=== PATIENT | male | born 1960 | race Caucasian/White ===

== ENCOUNTER 2017-01-04 04:26 | Emergency (ER) | payer OTHER ==
[~2017-01-04] VITALS: Ht 167.6 cm; Wt 80.0 kg
[~2017-01-04 04:26] MED LIST: AZIT250T94 PO; FLUT9.9S NASAL; LORA1TAB PO
[2017-01-04 04:33] VITALS: Ht 167.6 cm; Wt 80.0 kg
--- NOTE | 2017-01-04 05:40 | RADRPT ---
PROCEDURE: CT Brain without contrast. CLINICAL INDICATION: Left arm numbness for weeks TECHNIQUE: Axial images from the skull base through the vertex without IV contrast. Multiplanar r eformatted images were made. Images were reviewed on a PACS workstation. The CTDIvol is 45.01 mGy and the DLP is 720.23 mGycm. One or more of the following dose reduction techniques were used: auto mated exposure control, adjustment of the mA and/or kV according to patient size, or use of iterativ e reconstruction technique. COMPARISON: None. FINDINGS: The ventricles and cisterns are normal for age. There is no evidence for territorial infarction or intracranial hemorrhage. No mass or midline shift is seen. No extra-axial fluid collection is seen . The visualized paranasal sinuses and mastoids are clear. IMPRESSION: No definite acute intracranial abnormality. RPTAT: [facility] Physician Scout Date Time Electronically viewed and signed by Physician Scout on 01/04/2017 05:40 MAIA/
[2017-01-04] MEDS ORDERED: METH-70 PO (07:22)
[2017-01-04] MEDS ORDERED: IBUP800T25 PO (07:22)
--- NOTE | 2017-01-04 07:27 | ERD ---
ER Documentation Chief Complaint Date/Time DATE: 01/04/17 TIME: 07:23 Chief Complaint Numbness of the left shoulder and the arm. denies CP HPI This is a 56-year-old male here for left arm numbness. The patient says he has had daily left arm numbness for 3 weeks. He says the numbness is always there never goes away. He says he does not notice it as much when he is busy but that he is always there. The patient states that every morning he goes to the park and uses a weightlifting machine and does 200-300 machine rows. He has been seen here before and had a workup for cardiac which is negative. Is having no chest pain. He does say he has some pain begins at the left posterior neck and left trapezius, but there is no pain in the arm. He just feels tingling in the entire arm sometimes a tingling is only in the hand. No speech changes no visual change no symptoms in the leg ROS All systems reviewed and are negative except as per history of present illness. Medications Home Meds Active Scripts Methocarbamol* (Robaxin*) 750 Mg Tablet, 750 MG PO TID, #30 TAB Prov:MEÑO LADD DO 01/04/17 Ibuprofen* (Motrin*) 800 Mg Tab, 800 MG PO Q6H Y for PAIN AND OR ELEVATED TEMP, #30 TAB Prov:MEÑO LADD. DO 01/04/17 Fluticasone Propionate (Flonase Allergy Relief) 9.9 Ml [place].susp, 1 SPRAY NASAL DAILY, #1 BOTTLE TO EACH NOSTRIL Prov:RD ZAMBRANO DO 11/01/15 Lorazepam* (Lorazepam*) 1 Mg Tablet, 1 MG PO Q8H Y for ANXIETY, #10 TAB Prov:RD ZAMBRANO DO 11/01/15 Azithromycin* (Zithromax*) 250 Mg Tablet, 250 MG PO .ZPACK DIRECTED, #6 TAB TAKE 500 MG (2 TABS) THE FIRST DAY THEN 250 MG (1 TAB) DAYS 2-5 Prov:RAMOS VYAS 10/13/15 Allergies Allergies: Coded Allergies: No Known Allergy (Verified , 03/29/13) PMhx/Soc History of Surgery: No Anesthesia Reaction: No Hx Neurological Disorder: No Hx Respiratory Disorders: No Hx Cardiac Disorders: No Hx Psychiatric Problems: No Hx Miscellaneous Medical Probl: No Hx Alcohol Use: No Hx Substance Use: No Hx Tobacco Use: Yes Smoking Status: Current some day smoker FmHx Family History: No coronary disease Physical Exam Vitals Vital Signs Date Time Temp Pulse Resp B/P Pulse Ox O2 Delivery O2 Flow Rate FiO2 01/04/17 05:10 55 10 117/75 99 Room Air 01/04/17 04:33 97.2 58 20 110/69 97 Physical Exam Const: Well-developed, well-nourished Head: Atraumatic, normocephalic Eyes: Normal Conjunctiva, PERRLA, EOMI, normal sclera, no nystagmus ENT: Normal External Ears, Nose and Mouth, moist mucus membranes. Neck: Full range of motion. No meningismus, no lymphadenopathy. Resp: Clear to auscultation bilaterally, no wheezing, rhonchi, rales Cardio: Regular rate and rhythm, no murmurs, S1 S2 present Abd: Soft, non tender x 4, non distended. Normal bowel sounds, no guarding or rebound, no pulsitile abdominal masses or bruits Skin: No petechiae or rashes, no ecchymosis , no maculopapular rash Back: No midline or flank tenderness Ext: No cyanosis, or edema, FROM x 4, normal inspection, neurovascularly intact x 4, subjective tingling in the left upper extremity Neur: Awake and alert, STR 5/5 x 4, sensation intact x 4, no focal findings, cerebellum intact Psych: Normal Mood and Affect Results 24 hrs Laboratory Tests Test 01/04/17 04:58 01/04/17 05:15 Bedside Glucose 98mg/dL Troponin I < 0.012ng/ml Procedures/MDM EKG: Rate/Rhythm: Sinus bradycardia, incomplete right bundle branch block QRS, ST, QT: NORMAL LA, QRS, QT] Impression: NORMAL EKG PROCEDURE: CT Brain without contrast. CLINICAL INDICATION: Left arm numbness for weeks TECHNIQUE: Axial images from the skull base through the vertex without IV contrast. Multiplanar reformatted images were made. Images were reviewed on a PACS workstation. The CTDIvol is 45.01 mGy and the DLP is 720.23 mGycm. One or more of the following dose reduction techniques were used: automated exposure control, adjustment of the mA and/or kV according to patient size, or use of iterative reconstruction technique. COMPARISON: None. FINDINGS: The ventricles and cisterns are normal for age. There is no evidence for territorial infarction or intracranial hemorrhage. No mass or midline shift is seen. No extra-axial fluid collection is seen. The visualized paranasal sinuses and mastoids are clear. IMPRESSION: No definite acute intracranial abnormality. RPTAT: [facility] Joan Harrison Physician Date Time Electronically viewed and signed by Joan Harrison Physician on 01/04/2017 05 :40 LE/ CC: ARMANDO PATEL DO Patient likely has a cervical radiculopathy from an impingement of nerve in the neck or spine. Patient CT head is negative troponin is negative EKG is unremarkable. Told the patient to stop doing these machine activities in the morning at the park slightly making it worse. I told him to see his doctor and to order an MRI of his cervical spine to rule out any pathology Departure Diagnosis: Primary Impression: Cervical radiculopathy Condition: Stable Patient Instructions: Radiculopathy, Cervical Referrals: HUGO AYALA MD, APOSTOLOS A. DO January 04, 2017 07:27
[2017-01-04 07:38] VITALS: BP 122/65; PULSE 60; RESP 18
== END 2017-01-04 07:39 | disposition home or self-care (01) ==
LOC: E/R 04:26
DX: M54.12 Radiculopathy, cervical region (principal); F17.210 Nicotine dependence, cigarettes, uncomplicated; R00.1 Bradycardia, unspecified
CPT/HCPCS: 36415; 70450; 82962; 84484; 93005; Z7502

== ENCOUNTER 2018-11-03 20:35 | Emergency (ER) | payer OTHER ==
[~2018-11-03] VITALS: Ht 167.6 cm; Wt 81.8 kg
[~2018-11-03 20:35] MED LIST changes: +AZIT250T PO; -AZIT250T94 PO; +IBUP800T48 PO; +METH750T93 PO
[2018-11-03 20:40] VITALS: Ht 167.6 cm; Wt 81.8 kg
[2018-11-03] MEDS ORDERED: morphine 4 MG/ML VIAL IV STA (22:38)
[2018-11-03] MEDS ORDERED: ONDANSETRON 4 MG INJ IV STA (22:38)
[2018-11-03] MEDS ORDERED: TIMOLOL MALEATE/PF 0.5% OCCUDOSE (0.3 ML) RIGHT EYE ONE (23:00)
[2018-11-03] MEDS ORDERED: PILOCARPINE 2% 15ML OPH RIGHT EYE ONE (23:00)
[2018-11-03] MEDS ORDERED: ACETAZOLAMIDE 500 MG INJ IV ONE (23:00)
[2018-11-03] MEDS ORDERED: APRACLONIDINE 1% 0.1 ML OPH RIGHT EYE ONE (23:00)
[2018-11-03] MEDS ORDERED: IOHEXOL 100 ML ONE (23:57)
[2018-11-03] MEDS ORDERED: SOD CHLORIDE 0.9% 100 ML ONE (23:57)
[2018-11-03] MEDS ORDERED: IOHEXOL 350MG/ML 50 ML BTL ONE (23:57)
[2018-11-04] MEDS ORDERED: morphine 4 MG/ML VIAL IV STA ×2 (00:09→03:15)
[2018-11-04] MEDS ORDERED: ONDANSETRON 4 MG INJ IV STA (03:16)
--- NOTE | 2018-11-04 05:07 | ERD ---
ER Documentation Chief Complaint Chief Complaint PAIN BEHIND RIGHT EYE 10/10, BLURRY VISION, DIZZINESS X 1 HOUR HPI Is a 57-year-old male had sudden onset 10 out of 10 pain behind his right eye with decreased vision after staring at a computer screen and his office. He said the pain started suddenly he became immediately photophobic and essentially lost all vision other than shape distinction prior to arrival to the ER. Denies head trauma. Denies fevers chills nausea vomiting. Denies any focal neurological complaints otherwise. ROS All systems reviewed and are negative except as per history of present illness. Medications Home Meds Discontinued Scripts Methocarbamol* (Robaxin*) 750 Mg Tablet, 750 MG PO TID, #30 TAB Prov:LEKKOSMICAHSTOLOS A. DO 01/04/17 Ibuprofen* (Motrin*) 800 Mg Tab, 800 MG PO Q6H PRN for PAIN AND OR ELEVATED TEMP, #30 TAB Prov:MAIAKKMICAH SANTOROSTOLOS A. DO 01/04/17 Fluticasone Propionate (Flonase Allergy Relief) 9.9 Ml [place].susp, 1 SPRAY NASAL DAILY, #1 BOTTLE TO EACH NOSTRIL Prov:RD ZAMBRANO DO 11/01/15 Lorazepam* (Lorazepam*) 1 Mg Tablet, 1 MG PO Q8H PRN for ANXIETY, #10 TAB Prov:RD ZAMBRANO DO 11/01/15 Azithromycin* (Zithromax*) 250 Mg Tablet, 250 MG PO .ZPACK DIRECTED, #6 TAB TAKE 500 MG (2 TABS) THE FIRST DAY THEN 250 MG (1 TAB) DAYS 2-5 Prov:RAMOS VYAS 10/13/15 Allergies Allergies: Coded Allergies: No Known Allergy (Verified , 11/03/18) PMhx/Soc History of Surgery: No Anesthesia Reaction: No Hx Neurological Disorder: No Hx Respiratory Disorders: No Hx Cardiac Disorders: No Hx Psychiatric Problems: No Hx Miscellaneous Medical Probl: No Hx Alcohol Use: No Hx Substance Use: No Hx Tobacco Use: Yes Smoking Status: Former smoker Physical Exam Vitals Vital Signs Date Temp Pulse Resp B/P (MAP) Pulse Ox O2 O2 Flow FiO2 Time Delivery Rate 11/04/18 98.3 64 16 91/54 (66) 99 Room Air 10:00 11/04/18 66 16 105/61 99 Room Air 08:00 (76) 11/04/18 62 16 117/79 97 Room Air 06:34 (92) 11/04/18 59 14 110/73 98 Room Air 05:56 (85) 11/04/18 62 106/68 97 Room Air 02:00 (81) 11/04/18 63 112/69 98 Room Air 01:30 (83) 11/04/18 62 135/84 98 Room Air 01:00 (101) 11/04/18 69 138/89 97 Room Air 00:30 (105) 11/04/18 63 128/78 97 Room Air 00:00 (95) 11/03/18 63 17 136/86 95 Room Air 23:30 (103) 11/03/18 68 17 139/88 97 Room Air 23:00 (105) 11/03/18 70 18 148/92 99 Room Air 22:43 (110) 11/03/18 97.6 81 18 168/90 97 20:40 (116) Physical Exam Const: No acute distress Head: Atraumatic Eyes: Right pupil is fixed and dilated at 6 mm. Mild scleral injection noted. Visual acuity 20/200 and infected I, 20 out of 30 in unaffected eye. ENT: Normal External Ears, Nose and Mouth. Neck: Full range of motion. No meningismus. Resp: Clear to auscultation bilaterally Cardio: Regular rate and rhythm, no murmurs Abd: Soft, non tender, non distended. Normal bowel sounds Skin: No petechiae or rashes Back: No midline or flank tenderness Ext: No cyanosis, or edema Neur: Awake and alert Psych: Normal Mood and Affect Result Diagram: 11/03/18224711/03/182247 Results 24 hrs Laboratory Tests Test 11/03/18 22:48 White Blood Count 12.1 10^3/ul Red Blood Count 5.02 10^6/ul Hemoglobin 15.9 g/dl Hematocrit 45.4 % Mean Corpuscular Volume 90.4 fl Mean Corpuscular Hemoglobin 31.7 pg Mean Corpuscular Hemoglobin Concent 35.0 g/dl Red Cell Distribution Width 11.4 % Platelet Count 248 10^3/UL Mean Platelet Volume 9.9 fl Immature Granulocytes % 0.500 % Neutrophils % 89.8 % Lymphocytes % 6.3 % Monocytes % 2.6 % Eosinophils % 0.3 % Basophils % 0.5 % Nucleated Red Blood Cells % 0.0 /100WBC Immature Granulocytes # 0.060 10^3/ul Neutrophils # 10.8 10^3/ul Lymphocytes # 0.8 10^3/ul Monocytes # 0.3 10^3/ul Eosinophils # 0.0 10^3/ul Basophils # 0.1 10^3/ul Nucleated Red Blood Cells # 0.0 10^3/ul Erythrocyte Sedimentation Rate 1 mm/Hr Prothrombin Time 12.5 Sec Prothrombin Time Ratio 1.0 INR International Normalized Ratio 0.92 Activated Partial Thromboplast Time 27.9 Sec Sodium Level 142 mmol/L Potassium Level 4.0 mmol/L Chloride Level 105 mmol/L Carbon Dioxide Level 26 mmol/L Anion Gap 11 Blood Urea Nitrogen 18 mg/dl Creatinine 0.71 mg/dl Est Glomerular Filtrat Rate mL/min > 60 mL/min Glucose Level 123 mg/dl Calcium Level 9.1 mg/dl Troponin I < 0.012 ng/ml Current Medications Medications Dose Sig/Zoran Start Time Status Last (Trade) Ordered Route PRN Stop Time Admin Dose Reason Admin Morphine 4 mg ONCE STAT 11/03/18 DC 11/03/18 Sulfate IV 22:38 22:52 (morphine) 11/03/18 22:39 Ondansetron 4 mg ONCE STAT 11/03/18 DC 11/03/18 HCl (Zofran IV 22:38 22:51 Inj) 11/03/18 22:39 1 drop ONCE ONCE 11/03/18 DC 11/03/18 Apraclonidine RIGHT EYE 23:00 22:59 HCl 11/03/18 23:01 (Iopidine 1% Oph) Timolol 1 drop ONCE ONCE 11/03/18 DC 11/03/18 Maleate RIGHT EYE 23:00 22:59 (Timoptic 11/03/18 23:01 0.5% Ocudose Drop) Pilocarpine 1 drop ONCE ONCE 11/03/18 DC 11/03/18 HCl (Isopto RIGHT EYE 23:00 22:59 Carpine 2% 11/03/18 23:01 Oph) 500 mg ONCE ONCE 11/03/18 DC 11/03/18 Acetazolamide IV 23:00 22:59 (Diamox) 11/03/18 23:01 IV Flush 10 ml STK-MED 11/03/18 DC 11/04/18 (NS 10 ml) ONCE .ROUTE 23:57 00:25 11/03/18 23:58 Sodium 100 ml @ ud STK-MED 11/03/18 DC 11/04/18 Chloride ONCE .ROUTE 23:57 00:25 11/03/18 23:58 Iohexol 100 ml @ ud STK-MED 11/03/18 DC 11/04/18 ONCE .ROUTE 23:57 00:24 11/03/18 23:58 Iohexol 50 ml STK-MED 11/03/18 DC 11/04/18 (Omnipaque ONCE .ROUTE 23:57 00:24 350mg/ ml) 11/03/18 23:58 Morphine 4 mg ONCE STAT 11/04/18 DC 11/04/18 Sulfate IV 00:09 01:05 (morphine) 11/04/18 00:10 Morphine 4 mg ONCE STAT 11/04/18 DC 11/04/18 Sulfate IV 03:15 03:24 (morphine) 11/04/18 03:17 Ondansetron 4 mg ONCE STAT 11/04/18 DC 11/04/18 HCl (Zofran IV 03:16 03:23 Inj) 11/04/18 03:17 Procedures/MDM Emergency department course: Patient seen and evaluated triage nurse. Placed in bed from evaluation for facilitated guidewire. Immediately started on topical drops for what is suspected to be acute angle-closure glaucoma including timolol, pilocarpine, apraclonidine drops. Also given a carbonic anhydrase inhibitor intravenously. Had resolution of symptoms. Maintain stability. Visual acuity improved to 20 out of 30 consistent with the unaffected side. Diagnostic data: EKG: Rate/Rhythm: [Normal Sinus Rhythm] QRS, ST, T-waves: [No changes consistent w/ acute ischemia] Impression: [No evidence of ischemia or arrhythmia] Chest X-ray 1V Interpreted by me: Soft Tissue: No acute abnormalitie s Bones: No acute abnormalities Mediastinum/Cardiac Silhouette/Lungs: [No acute abnormalities] Initial Drew-Pen reading on the right was 54. Repeat Drew-Pen was 22. Medical decision making: Is a 57-year-old male with acute angle-closure glaucoma. He has been treated and stabilized in the emergency department and is awaiting placement for definitive treatment with a higher level care for ophthalmology. Currently pending placement at this time. Will be signed out to oncoming physician Critical Care: Time: 45 minutes, independent of any separately billable procedural time Treatments/Evaluations: Close monitoring and treatment of unstable vital signs, cardiorespiratory, and neurologic status, while maintaining tight balance of fluid, respiratory, and cardiac interventions. An ophthalmological facility was called to try to transfer the patient and they said this patient is not the type of patient and needs to be transferred and admitted in the hospital and this is an outpatient issue. They refused to take this case. I spoke with Dr. singh, of ophthalmology and she agreed. She said to send the patient to her office right now. She will see him on arrival is currently 10:15 AM The patient says that his eye feels better. Will discharge and immediately follow-up with her office now Departure Diagnosis: Primary Impression: Acute angle-closure glaucoma Laterality: right Qualified Codes: H40.211 - Acute angle-closure glaucoma, right eye Condition: Stable SARAH PEREZ Nov 04, 2018 05:07 MEOÑ LADD DO Nov 04, 2018 10:15
[2018-11-04 10:26] VITALS: BP 106/67; PULSE 68; RESP 16
== END 2018-11-04 10:31 | disposition home or self-care (01) ==
LOC: E/R 20:35
DX: H40.211 Acute angle-closure glaucoma, right eye (principal); R42 Dizziness and giddiness; R40.2142 Coma scale, eyes open, spontaneous, at arrival to emergency department; R40.2252 Coma scale, best verbal response, oriented, at arrival to emergency department; R40.2362 Coma scale, best motor response, obeys commands, at arrival to emergency department; Z87.891 Personal history of nicotine dependence
CPT/HCPCS: 70450; 70496; 70498; 80048; 84484; 85025; 85610; 85651; 85730; 93005; J1120; J2270; J2405; Q9967; Z7610; 36415; 96374; 96375; 96376

== ENCOUNTER 2019-05-10 11:27 | Day surgery (SDC) | payer OTHER ==
[~2019-05-10] VITALS: Ht 167.6 cm; Wt 82.6 kg
[~2019-05-10 11:27] MED LIST changes: +ARTHRITIS; -AZIT250T PO; -FLUT9.9S NASAL; -IBUP800T48 PO; -LORA1TAB PO; -METH750T93 PO
[2019-05-10 12:20] VITALS: Ht 167.6 cm; Wt 82.6 kg
[2019-05-10 12:45] VITALS: BP 139/62; PULSE 70; RESP 18
[2019-05-10] MEDS ORDERED: GLYCOPYRROLATE 0.4 MG INJ ONE (12:45)
[2019-05-10] MEDS ORDERED: PROPOFOL 40 ML ONE (12:45)
[2019-05-10 14:03] VITALS: BP 110/65; RESP 21
== END 2019-05-10 21:52 | disposition home or self-care (01) ==
LOC: GIL 11:27
PROVIDERS: ATTEND Internal Medicine Gastroenterology
DX: Z12.11 Encounter for screening for malignant neoplasm of colon (principal); D12.2 Benign neoplasm of ascending colon; K64.8 Other hemorrhoids; K57.30 Diverticulosis of large intestine without perforation or abscess without bleeding
CPT/HCPCS: 45380; 88305; Z7610